=== PATIENT | female | born 1975 | race African-American/Black ===

== ENCOUNTER 2021-02-11 08:08 | Outpatient (CLI) | payer OTHER, SELFPAY ==
--- NOTE | 2021-02-11 11:00 | WPDMETH ---
Methacholine Procedure Perform Procedure Performed Methacholine Challenge Methacholine Challenge This is a methacholine challenge test. The test was performed and interpreted in accordance with the 1999 [place] [employer] guidelines. The test was performed with increasing doses of nebulized methacholine using a 2 minute tidal breathing protocol. The best post-methacholine FEV1 values were used to calculate the change from the post diluent FEV1. Findings: Baseline FEV1 2.61 L, 93% predicted. Post diluent FEV1 2.54 L Post 0.025 mg/ml methacholine FEV1 2.59 L, increased 2% Post 0.25 mg/mL methacholine FEV1 2.62 L, increased 3% Post 2.5 mg/mL methacholine FEV1 2.40 L, decreased 5% Post 10 mg/mL methacholine FEV1 2.24 L, decreased 12% Post 25 mg/mL methacholine FEV1 1.85 L, decreased 27% Post albuterol nebulization FEV1 2.43 L Impression: The PC20 is 16.4 mg/ml which is categorized as normal bronchial responsiveness. There are no prior methacholine challenge studies for comparison
== END 2021-02-11 08:09 | disposition home or self-care (01) ==
PROVIDERS: PCP Nurse Practitioner Family; Visit Provider Nurse Practitioner
DX: J45.909 Unspecified asthma, uncomplicated (principal)
CPT/HCPCS: 94070; J7674